=== PATIENT | female | born 1930 | race Caucasian/White ===

== ENCOUNTER → 2017-04-11 | Outpatient (CLI) | payer MEDICARE, OTHER ==
--- NOTE | 2017-04-11 16:57 | CT ---
EXAM DESCRIPTION: Pelvis CLINICAL HISTORY: 86 years Female, HIP PAIN, LEFT COMPARISON: None. TECHNIQUE: This exam was performed according to our departmental dose-optimization program, which includes automated exposure control, adjustment of the mA and/or kV according to patient size and/or use of iterative reconstruction technique. Noncontrast imaging of the left hip with MPR reformatted images. FINDINGS: A left total hip replacement is noted in place with no evidence of erosions or loosening or malposition. The inferior SI joint is intact and the visualized portions of the initial and pubic ramus is intact. No soft tissue masses or fluid collections are noted. Moderate atrophy of the gluteus medius muscle near its insertion is noted with the gluteus isabel intact. No soft tissue masses are seen. No intrapelvic abnormalities noted. IMPRESSION: Satisfactory left hip replacement with satisfactory alignment without occult fracture or bony destructive change or evidence of loosening. Modest atrophy of the gluteus medius muscle distally near its insertion is noted without additional soft tissue abnormalities. Electronically signed by: Cristi Rawls MD 04/11/2017 4:[address] [facility]
== END | disposition home or self-care (01) ==
LOC: CT 10:52
PROVIDERS: ATTEND Family Medicine
DX: M25.552 Pain in left hip (principal)

== ENCOUNTER → 2017-04-12 | Outpatient (CLI) | payer MEDICARE, OTHER ==
--- NOTE | 2017-04-12 14:53 | MAM ---
EXAM DESCRIPTION: 3D Screening BILATERAL : Digital Mammography. CLINICAL HISTORY: 86 years Female SCREENING . No complaints. No family history of breast cancer. Menstrual status unknown. COMPARISON: 2-D digital screening bilateral study 01/07/2014. No prior reports available. TECHNIQUE: Bilateral CC and MLO projection full-field images, 3-D tomosynthesis digital mammographic technique. Also bilateral synthesized CC/ MLO full-field images . CAD not utilized. FINDINGS: The breast parenchymal density pattern is: Scattered areas of fibroglandular density. No skin thickening or nipple retraction bilateral vascular calcifications. Electronic device partially obscures the upper left pectoral muscle on the MLO view. Bilateral solitary microcalcifications.. No bilateral solitary microcalcifications. focal asymmetry , and no suspicious microcalcifications bilaterally. Stable mammograms compared to prior study, taking into account differences in mammographic technique IMPRESSION: BI-RADS CATEGORY: 2 - BENIGN FINDINGS. FOLLOW UP: Routine digital bilateral screening, one year interval from March 2017. Written communication explaining the IMPRESSION and follow-up, will be mailed to the patient and referring health care provider. According to the [employer], yearly mammograms are recommended starting at age 40 and continuing as long as a woman is in good health. Any breast change noted on a breast self-exam should be reported promptly to the patient's healthcare provider. Breast MRI is recommended for women with an approximately 20-25% or greater lifetime risk of breast cancer, including women with a strong family history of breast or ovarian cancer and women who have been treated for Hodgkin's disease. A negative mammographic report should not delay tissue diagnosis in patients with significant clinical history or physical findings. Extremely dense breast tissue limits the sensitivity of digital mammography. Electronically signed by: Alan Rutledge MD 04/12/2017 2:52 PM [facility]
== END | disposition home or self-care (01) ==
LOC: MAMMO 09:38
PROVIDERS: ATTEND Family Medicine
DX: Z12.31 Encounter for screening mammogram for malignant neoplasm of breast (principal)
CPT/HCPCS: 77063; G0202

== ENCOUNTER → 2017-04-25 | Outpatient (CLI) | payer MEDICARE, OTHER | END | disposition home or self-care (01) | LOC: GMAB 17:05 | PROVIDERS: ATTEND Family Medicine | DX: N39.0 Urinary tract infection, site not specified (principal) ==

== ENCOUNTER → 2017-07-04 | Outpatient (CLI) | payer OTHER | LOC: GMAJ 15:48 | PROVIDERS: ATTEND Family Medicine | DX: E83.52 Hypercalcemia (principal); R23.3 Spontaneous ecchymoses ==

== ENCOUNTER → 2017-08-14 | Outpatient (CLI) | payer OTHER | LOC: GMAB 11:55 | PROVIDERS: ATTEND Family Medicine | DX: E83.52 Hypercalcemia (principal) ==

== ENCOUNTER → 2017-12-06 | Outpatient (CLI) | payer OTHER | LOC: GMAE 12:32 | PROVIDERS: ATTEND Family Medicine | DX: N18.4 Chronic kidney disease, stage 4 (severe) (principal) ==

== ENCOUNTER → 2020-01-15 | Outpatient (CLI) | payer OTHER ==
--- NOTE | 2020-01-16 13:01 | CT ---
EXAM DESCRIPTION: CT head without contrast CLINICAL HISTORY: symptoms involving cognitive functions and awareness COMPARISON: Previous CT head November 01, 2011 TECHNIQUE: Noncontrast head CT was performed with routine protocol. FINDINGS: Low density right frontal lobe consistent with old infarct involving browne matter and white matter. This was present on the previous study. Otherwise normal browne-white matter differentiation. Ventricles and sulci are prominent consistent with age-related cerebral volume loss. Low density areas in the white matter consistent with chronic microvascular ischemic disease No high density hemorrhage, focal edema or shift of the midline. No sulcal effacement. Normal orbital contents. Basilar cisterns appear clear. Intact calvarium with no fracture or lytic lesion. Old trauma with degenerative change of the right TMJ. Calcified intracranial internal carotid arteries. Normal aeration of tympanic cavities and mastoid air cells. No fluid levels in the paranasal sinuses. Skull base appears intact. Symmetrical internal auditory canals. IMPRESSION: No acute intracranial pathologic process. 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 This exam was performed according to our departmental dose-optimization program, which includes automated exposure control, adjustment of the mA and/or kV according to patient size and/or use of iterative reconstruction technique. Total DLP equals 752.48 mGycm. Electronically signed by: Ramez Olivas MD 01/16/2020 12:59 PM CDT
== END ==
LOC: CT 15:25
PROVIDERS: ATTEND Family Medicine
DX: I63.9 Cerebral infarction, unspecified (principal); G31.1 Senile degeneration of brain, not elsewhere classified

== ENCOUNTER → 2020-01-15 | Outpatient (CLI) | payer OTHER | LOC: CANPRECLI → GMAE 16:40 | PROVIDERS: ATTEND Family Medicine | DX: R41.9 Unspecified symptoms and signs involving cognitive functions and awareness (principal) ==

== ENCOUNTER → 2020-01-30 | Outpatient (CLI) | payer OTHER | LOC: GMAE 14:50 | PROVIDERS: ATTEND Family Medicine | DX: R41.82 Altered mental status, unspecified (principal); R39.15 Urgency of urination ==

== ENCOUNTER 2020-02-14 18:20 | Emergency (ER) | payer OTHER ==
[2020-02-14 18:44] VITALS: TEMP 97.9; O2SAT 97
[2020-02-14] MEDS ORDERED: ASPIRIN TABLET 325 MG TAB PO ONE (18:52)
--- NOTE | 2020-02-14 19:00 | CT ---
EXAM DESCRIPTION: Head 02/14/2020 6:56 PM CDT CLINICAL HISTORY: 89 years, Female, fall with lle weakness COMPARISON: 01/15/2020. FINDINGS: Multiple transaxial tomograms of the brain were obtained from the base of the skull to the vertex without contrast. 2-D multiplanar reformats and the coronal and sagittal plane were performed and reviewed. An individualized dose optimization technique, Automated Exposure Control, was utilized for the performed procedure. Brain parenchyma demonstrate prominence of the sulci and gyri are corresponding to cerebral and cerebellar atrophy. There is minimal periventricular white matter changes of microvascular ischemia. Small lacunar infarct is noted within the deep white matter right frontal lobe. No acute intracranial hemorrhage. Lateral ventricles and cisterns displace normal appearance. No intra or extra axial fluid collections were seen. The calvarium is intact with no evidence for fracture. The visualized portions of the paranasal sinuses and orbits demonstrate to be clear. IMPRESSION: BRAIN ATROPHY WITH PERIVENTRICULAR WHITE MATTER CHANGES. 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 NO ACUTE INTRACRANIAL HEMORRHAGE. Electronically signed by: Leland Boothe MD 02/14/2020 6:59 PM CDT
[2020-02-14] MEDS ORDERED: SODIUM CHLORIDE 0.9% 1000ML 500 ML IVS ONE (19:24)
--- NOTE | 2020-02-14 19:30 | RAD ---
EXAM DESCRIPTION: Pelvis CLINICAL HISTORY: fall with lle weakness COMPARISON: None FINDINGS: Frontal single x-ray view of the pelvis was submitted. There is no discrete acute fracture. Patient is status post left hip arthroplasty. Calcifications within the pelvis compatible with phlebolith. There are degenerative changes of the lumbar spine. IMPRESSION: No acute abnormalities Electronically signed by: Doc Rocha MD 02/14/2020 7:28 PM CDT
--- NOTE | 2020-02-14 19:31 | RAD ---
EXAM DESCRIPTION: Hip,Left 2 Views CLINICAL HISTORY: fall with lle weakness COMPARISON: None FINDINGS: Two x-ray views of the left hip were submitted. Patient is status post left hip arthroplasty. There is no evidence of acute fracture, loosening or dislocation.. IMPRESSION: No acute fracture or dislocation. Electronically signed by: Doc Rocha MD 02/14/2020 7:29 PM CDT
--- NOTE | 2020-02-14 19:32 | RAD ---
EXAM DESCRIPTION: Chest,1 View CLINICAL HISTORY: possible tia COMPARISON: None FINDINGS: Pacer leads project over the heart. EKG leads project over the chest. There is atherosclerosis. There is no focal parenchymal or pleural disease. There is no acute osseous process visualized. IMPRESSION: No evidence of acute cardiopulmonary disease. Electronically signed by: Doc Rocha MD 02/14/2020 7:30 PM CDT
--- NOTE | 2020-02-14 19:38 | ED.PDOC ---
History of Present Illness - General Chief Complaint: Neuro Symptoms/Deficits Stated Complaint: left leg weakness Time Seen by Provider: 02/14/20 18:23 Source: patient Exam Limitations: no limitations - History of Present Illness Initial Comments: The patient is an 89-year-old female presented emergency room secondary to having fallen while walking in the garage. She did not hurt herself but she was unable to move the left leg essentially after the fall for a period of about an hour and a half. She started moving a little bit by the time that EMS arrived. By the time I saw her she was actually moving the left leg pretty well. 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 She does always have a little bit increased weakness in the left leg at least for the past for 5 years. Patient is alert and oriented. No facial droop. 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 No obvious new neurological problems. No difficulty with swallowing or speech. No difficulty moving the left upper knee. The patient is pleasant and cooperative. Symptoms started around 415. Timing/Duration: 1-3 hours Severity: moderate Improving Factors: nothing Worsening Factors: nothing Associated Symptoms: denies symptoms Allergies/Adverse Reactions: Allergies NO KNOWN ALLERGY Allergy (Unverified 07/16/13 17:54) Review of Systems - Review of Systems Constitutional: States: no symptoms reported EENTM: States: no symptoms reported Respiratory: States: no symptoms reported Cardiology: States: no symptoms reported Gastrointestinal/Abdominal: States: no symptoms reported Genitourinary: States: no symptoms reported Musculoskeletal: States: no symptoms reported Skin: States: no symptoms reported Neurological: States: see HPI Endocrine: States: no symptoms reported All other Systems: No Change from Baseline Past Medical History (General) - Patient Medical History Hx Stroke: Yes Hx Dementia: Yes Hx Cardiac Disorders: Yes - Atherosclerosis Hx Congestive Heart Failure: No Hx Diabetes: No - Vaccination History Hx Influenza Vaccination: No Hx Pneumococcal Vaccination: No - Social History Hx Tobacco Use: Yes Family Medical History - Family History Father Family History: Unknown Living Status: Unknown Physical Exam - Physical Exam General Appearance: Alert, Comfortable, No apparent distress Eye Exam: bilateral normal Ears, Nose, Throat: hearing grossly normal, normal pharynx Neck: full range of motion, supple Respiratory: lungs clear, normal breath sounds, no respiratory distress, no accessory muscle use Cardiovascular/Chest: normal peripheral pulses, regular rate, rhythm, no edema Peripheral Pulses: radial,right: 2+, radial,left: 2+ Gastrointestinal/Abdominal: non tender, soft Rectal Exam: deferred Back Exam: no CVA tenderness, no vertebral tenderness Extremity: non-tender, normal inspection, no pedal edema, normal capillary refill, other - Initially there did appear to be some mild weakness to the left lower extremity but that has resolved over the ensuing couple of hours. 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 Sensation is intact. DTR: 2+: Patellar, left, Patellar, right Skin Exam: normal color Comments: Vital Signs - 24 hr 02/14/20 18:36 Temperature 97.9 F Pulse Rate [ 64 Left Brachial] Respiratory 14 Rate Blood Pressure 127/87 [Left Arm] O2 Sat by Pulse 97 Oximetry Progress - Progress Progress: 02/14/20 19:40 The patient is a 89-year-old female presenting with acute onset left lower extremity weakness that caused her to fall. X-rays and CT scan of the head are reassuring. Symptoms appear to have resolved. This is most consistent with a TIA. Patient should start taking a full dose aspirin daily. I do want her to follow-up with her primary care doctor this coming week. The patient received a full dose aspirin here. Vital signs are stable and the patient appears to be fairly steady on her feet at this point. It has been explained to the patient that we do normally place patients in-house at least overnight for further monitoring however the patient defers that at this time secondary to the rapid coronavirus in the community. This is not unreasonable. Strict ER warnings are given. angus vanessa [phone] - Results/Orders Results/Orders: Head CT shows no acute changes. Evidence of her previous stroke is present as well as chronic changes. Chest x-ray, left hip x-ray and pelvic x-ray showed no acute pathology. See reports for details. EKG shows sinus bradycardia 55 bpm. There are old mild T wave inversions in inferior lateral leads that were present since 2013. No obvious acute ST segment or T wave changes indicative of acute ischemia. Normal QT interval. Mild right axis. Laboratory Tests 02/14/20 02/14/20 02/14/20 19:03 19:03 19:03 WBC 6.8 RBC 4.35 Hgb 13.5 Hct 40.8 MCV 93.8 MCH 31.1 H MCHC 33.1 RDW 13.8 Plt Count 188 MPV 9.1 Absolute Neuts (auto) 4.30 Absolute Lymphs (auto) 1.80 Absolute Monos (auto) 0.50 Absolute Eos (auto) 0.20 Absolute Basos (auto) 0.00 Neutrophils % 63.2 Lymphocytes % 26.5 Monocytes % 6.7 Eosinophils % 3.0 Basophils % 0.6 PT 10.4 INR 1.05 PTT (SP) 22.5 Sodium 140 Potassium 4.4 Chloride 108 Carbon Dioxide 22 Anion Gap 14.4 BUN 43 H Creatinine 1.75 H BUN/Creatinine Ratio 24.6 H Random Glucose 101 Serum Osmolality 290.4 Calcium 10.5 H Magnesium 1.7 L Total Bilirubin 0.6 AST 27 ALT 17 Alkaline Phosphatase 55 Creatine Kinase 90 Troponin I < 0.02 Serum Total Protein 7.0 Albumin 3.9 Globulin 3.1 Albumin/Globulin Ratio 1.3 - EKG/XRAY/CT CT Ordered: Yes Departure - Departure Clinical Impression: TIA (transient ischemic attack) Disposition: Discharge to Home or Self Care Condition: Fair Departure Forms: ED Discharge - Pt. Copy, Patient Portal Self Enrollment Instructions: Transient Ischemic Attack (DC) Diet: regular diet Activity: increase activity as tolerated Referrals: TIM HOOD MD [Primary Care Provider] - 1-2 Weeks Additional Instructions: The patient is a 89-year-old female presenting with acute onset left lower extremity weakness that caused her to fall. X-rays and CT scan of the head are reassuring. Symptoms appear to have resolved. This is most consistent with a TIA. Patient should start taking a full dose aspirin daily. I do want her to follow-up with her primary care doctor this coming week. The patient received a full dose aspirin here. Vital signs are stable and the patient appears to be fairly steady on her feet at this point. It has been explained to the patient that we do normally place patients in-house at least overnight for further monitoring however the patient defers that at this time secondary to the rapid coronavirus in the community. This is not unreasonable. Strict ER warnings are given. She does obviously need to ambulate carefully to prevent further falls.
[2020-02-14 20:13] VITALS: BP 138/57
== END 2020-02-14 20:00 | disposition home or self-care (01) ==
LOC: ER 18:20
DX: G45.9 Transient cerebral ischemic attack, unspecified (principal); R00.1 Bradycardia, unspecified; R29.898 Other symptoms and signs involving the musculoskeletal system; F03.90 Unspecified dementia, unspecified severity, without behavioral disturbance, psychotic disturbance, mood disturbance, and anxiety; I25.10 Atherosclerotic heart disease of native coronary artery without angina pectoris; Z87.891 Personal history of nicotine dependence

== ENCOUNTER → 2020-02-27 | Outpatient (CLI) | payer OTHER | LOC: GMAE 14:20 | PROVIDERS: ATTEND Family Medicine | DX: R10.13 Epigastric pain (principal) ==

== ENCOUNTER → 2020-03-10 | Outpatient (CLI) | payer OTHER | LOC: GMA CAST 10:33 | PROVIDERS: ATTEND Family Medicine Sports Medicine | DX: R30.0 Dysuria (principal); R41.89 Other symptoms and signs involving cognitive functions and awareness ==

== ENCOUNTER → 2020-04-30 | Outpatient (CLI) | payer MEDICARE, OTHER | LOC: GMAE 11:21 | PROVIDERS: ATTEND Family Medicine | DX: I10 Essential (primary) hypertension (principal); Z79.01 Long term (current) use of anticoagulants; E78.2 Mixed hyperlipidemia; Z11.59 Encounter for screening for other viral diseases ==